=== PATIENT | female | born 1965 | race Caucasian/White ===

== ENCOUNTER 2018-05-22 12:24 | Inpatient (IN) | payer OTHER ==
[~2018-05-22] VITALS: Ht 180.3 cm; Wt 98.1 kg
[2018-05-22] MEDS ORDERED: SODIUM CHLORIDE FLUSH 10ML SYR IVF ONE (13:30)
[2018-05-22] MEDS ORDERED: ASPIRIN 81 MG TABLET CHEW PO ONE (13:30)
[2018-05-22 13:36] LABS: BASOPHILS # (AUTO) 0.08 x10^3/uL (0-0.1); BASOPHILS % (AUTO) 1 % (0-1); EOSINOPHILS # (AUTO) 0.23 x10^3/uL (0-0.4); EOSINOPHILS % (AUTO) 3 % (1-7); LYMPHOCYTES # (AUTO) 1.91 x10^3/uL (1-3.4); LYMPHOCYTES % (AUTO) 25 % (22-44); MD NO; MEAN CORPUSCULAR HEMOGLOBIN 31.8 pg (27.0-34.8); MEAN CORPUSCULAR HGB CONC 33.2 g/dL (32.4-35.8); MEAN CORPUSCULAR VOLUME 95.7 fL (80-100); MONOCYTES # (AUTO) 0.39 x10^3/uL (0.2-0.8); MONOCYTES % (AUTO) 5 % (2-9); NEUTROPHILS # (AUTO) 5.13 x10^3/uL (1.8-6.8); NEUTROPHILS % (AUTO) 66 % (42-75); PLATELET COUNT 251 x10^3/uL (130-400); RED BLOOD COUNT 3.99 x10^6/uL (3.82-5.3); RED CELL DISTRIBUTION WIDTH 14.2 % (9.6-15.2)
[2018-05-22] MEDS ORDERED: ASPIRIN 81 MG TABLET CHEW ONE (13:37)
[2018-05-22 13:42] LABS: INTERNATIONAL NORMALIZED RATIO 1.04 (0.93-1.1); PROTHROMBIN TIME 10.7 Seconds (9.6-11.5)
[2018-05-22 13:45] LABS: ALBUMIN 3.6 g/dL (3.4-5.0); ANION GAP 7 mmol/L (5-15); CALCIUM 8.4 mg/dL (8.5-10.1); CHLORIDE 106 mmol/L (98-107)
[2018-05-22 13:47] LABS: ALANINE AMINOTRANSFERASE 33 U/L (12-78); CREATININE 0.65 mg/dL (0.55-1.02); TROPONIN I < 0.015 ng/mL (0.000-0.045)
[2018-05-22 13:51] LABS: ALKALINE PHOSPHATASE 101 U/L (45-117); BILIRUBIN,TOTAL 0.6 mg/dL (0.2-1.0); TOTAL PROTEIN 6.9 g/dL (6.4-8.2)
[2018-05-22] MEDS ORDERED: POTASSIUM CHLORIDE 20 MEQ TAB.ER.PRT PO ONE ×2 (14:30→17:30)
[2018-05-22] MEDS ORDERED: POTASSIUM CHLORIDE 20 MEQ TAB.ER.PRT ONE (14:43)
[2018-05-22] MEDS ORDERED: OMNIPAQUE 350 MG/ML, 100ML BOTTLE ONE (15:07)
[2018-05-22] MEDS ORDERED: ONDANSETRON ODT 4 MG PO PRN (17:00)
[2018-05-22] MEDS ORDERED: ONDANSETRON 2MG/ML, 2ML IVPush PRN (17:00)
[2018-05-22] MEDS ORDERED: morphine SULFATE 10 MG/ML, 1ML IVPush PRN (17:00)
[2018-05-22] MEDS ORDERED: LABETALOL 5MG/ML, 20ML IVPush PRN (17:00)
[2018-05-22] MEDS ORDERED: LEVO50TA5 PO (17:01)
[2018-05-22] MEDS ORDERED: METF500T27 PO (17:01)
[2018-05-22] MEDS ORDERED: ATOR40TA78 PO (17:01)
[2018-05-22] MEDS ORDERED: LISI-167 PO (17:01)
[2018-05-22] MEDS ORDERED: OMEP-110 PO (17:01)
[2018-05-22 17:42] LABS: TROPONIN I < 0.015 ng/mL (0.000-0.045)
[2018-05-22 17:44] LABS: FREE T4 (FREE THYROXINE) 0.95 ng/dL (0.76-1.46)
[2018-05-22] MEDS ORDERED: GLUCAGON 1 MG IM PRN (18:00)
[2018-05-22] MEDS ORDERED: MAGNESIUM SULFATE PMX 2GM/50ML 50 ML IV ONE (18:00)
[2018-05-22] MEDS ORDERED: DEXTROSE 4 GM TAB.CHEW PO PRN (18:00)
[2018-05-22] MEDS ORDERED: DEXTROSE 50%, 50ML SYRINGE IVPush PRN (18:00)
[2018-05-22 20:28] VITALS: BP 160/79
[2018-05-22] MEDS ORDERED: ATORVASTATIN 40 MG TABLET PO SCH (21:00)
[2018-05-22] MEDS: INSULIN LISPRO 100 UNITS/ML, PEN SQ-INSULIN SCH (21:00)
[2018-05-22] MEDS: SODIUM CHLORIDE FLUSH 10ML SYR IVF SCH (21:00)
[2018-05-22] MEDS: ENOXAPARIN 40 MG/0.4 ML SQ SCH (22:41)
[2018-05-22] MEDS ORDERED: ACETAMINOPHEN 325 MG TABLET PO PRN (23:00)
[2018-05-22 23:36] LABS: TROPONIN I < 0.015 ng/mL (0.000-0.045)
[2018-05-23] MEDS ORDERED: IBUPROFEN 200 MG TABLET PO ONE (01:00)
[2018-05-23 02:50] VITALS: BP 125/74
[2018-05-23 05:41] LABS: ALBUMIN 3.1 g/dL (3.4-5.0); CHLORIDE 108 mmol/L (98-107)
[2018-05-23 05:45] LABS: BASOPHILS # (AUTO) 0.03 x10^3/uL (0-0.1); BASOPHILS % (AUTO) 0 % (0-1); EOSINOPHILS # (AUTO) 0.28 x10^3/uL (0-0.4); EOSINOPHILS % (AUTO) 4 % (1-7); LYMPHOCYTES # (AUTO) 2.19 x10^3/uL (1-3.4); LYMPHOCYTES % (AUTO) 32 % (22-44); MD NO; MEAN CORPUSCULAR HGB CONC 34.5 g/dL (32.4-35.8); MEAN CORPUSCULAR VOLUME 95.4 fL (80-100); MONOCYTES # (AUTO) 0.42 x10^3/uL (0.2-0.8); MONOCYTES % (AUTO) 6 % (2-9); NEUTROPHILS # (AUTO) 3.96 x10^3/uL (1.8-6.8); NEUTROPHILS % (AUTO) 58 % (42-75); PLATELET COUNT 213 x10^3/uL (130-400); RED BLOOD COUNT 3.57 x10^6/uL (3.82-5.3); RED CELL DISTRIBUTION WIDTH 13.9 % (9.6-15.2)
[2018-05-23 05:55] LABS: ALANINE AMINOTRANSFERASE 29 U/L (12-78); ALKALINE PHOSPHATASE 95 U/L (45-117); ANION GAP 7 mmol/L (5-15); BILIRUBIN,TOTAL 0.8 mg/dL (0.2-1.0); CALCIUM 7.8 mg/dL (8.5-10.1); CREATININE 0.63 mg/dL (0.55-1.02); TOTAL PROTEIN 5.9 g/dL (6.4-8.2)
[2018-05-23] MEDS ORDERED: MAGNESIUM SULFATE PMX 2GM/50ML 50 ML IV ONE (07:00)
[2018-05-23] MEDS ORDERED: IBUPROFEN 200 MG TABLET PO PRN (07:00)
[2018-05-23] MEDS: D5%-0.45% NACL 1,000 ML IV SCH ×2 (07:00→15:00)
[2018-05-23] MEDS: INSULIN LISPRO 100 UNITS/ML, PEN SQ-INSULIN SCH ×3 (07:00→16:00)
[2018-05-23 07:37] VITALS: BP 128/80
[2018-05-23] MEDS: SODIUM CHLORIDE FLUSH 10ML SYR IVF SCH (07:55)
[2018-05-23] MEDS ORDERED: LISINOPRIL 10 MG TABLET PO SCH (09:00)
[2018-05-23] MEDS ORDERED: OMEPRAZOLE 20 MG CAPSULE.DR PO SCH (09:00)
[2018-05-23] MEDS ORDERED: SENNA/DOCUSATE TABLET PO SCH (09:00)
[2018-05-23] MEDS ORDERED: LEVOTHYROXINE 50 MCG TABLET PO SCH (09:00)
[2018-05-23] MEDS ORDERED: REGADENOSON 0.4 MG/5 ML SYRINGE ONE (09:53)
[2018-05-23 13:29] VITALS: BP 144/73
[2018-05-23] MEDS: ENOXAPARIN 40 MG/0.4 ML SQ SCH (17:00)
== END 2018-05-23 17:36 | disposition left against medical advice (07) | DRG 303 ==
LOC: ED 14:07 → EDIP 16:33 → 5SO 18:40
PROVIDERS: ADMIT Internal Medicine; ATTEND Internal Medicine
DX: I25.10 Atherosclerotic heart disease of native coronary artery without angina pectoris (principal); E03.9 Hypothyroidism, unspecified; E11.9 Type 2 diabetes mellitus without complications; E78.5 Hyperlipidemia, unspecified; E87.6 Hypokalemia; R20.0 Anesthesia of skin; I10 Essential (primary) hypertension; I34.1 Nonrheumatic mitral (valve) prolapse; K21.9 Gastro-esophageal reflux disease without esophagitis; Z79.82 Long term (current) use of aspirin; Z82.3 Family history of stroke; Z82.49 Family history of ischemic heart disease and other diseases of the circulatory system; Z83.3 Family history of diabetes mellitus; Z87.891 Personal history of nicotine dependence; Z90.49 Acquired absence of other specified parts of digestive tract; Z88.8 Allergy status to other drugs, medicaments and biological substances
CPT/HCPCS: 36415; 70450; 71045; 71275; 78452; 80053; 82962; 83735; 83880; 84100; 84439; 84443; 84484; 85025; 85379; 85610; 85730; 93005; 93017; 93306; 99285; J1650; J2785; Q9967; A9502; C9898; J3475